=== PATIENT | female | born 1995 | race Two or more races ===

== ENCOUNTER 2021-03-12 19:56 | Emergency (ER) | payer MEDICAID, OTHER ==
[~2021-03-12] VITALS: Ht 167.6 cm; Wt 88.5 kg
[2021-03-12 20:25] LABS: Urine Bacteria NONE SEEN /hpf (None Seen); Urine Blood Negative /uL (Negative); Urine Specific Gravity 1.017 (1.001-1.035); Urine WBC 9 /hpf (0 - 5)
[2021-03-12 21:04] LABS: Eosinophils # (auto) 0.1 10 ^3/uL (0-0.8); Mean Corpuscular Volume 81.4 fL (80.0-100.0); Nucleated Red Blood Cells % 0.1 %
[2021-03-12 21:08] LABS: Basophils # (auto) 0 10 ^3/uL (0-0.2); Basophils % (auto) 0.4 % (0.0-2.0); Eosinophils % (auto) 0.9 % (0.0-7.0); Hematocrit 37.8 % (36.0-46.0); Hemoglobin 12.4 g/dL (12.2-16.2); Lymphocytes # (auto) 2.4 10 ^3/uL (0.4-5.4); Lymphocytes % (auto) 18.1 % (10.0-50.0); Mean Corpuscular Hemoglobin 26.7 pg (28.0-32.0); Mean Corpuscular Hgb Conc. 32.8 g/dL (32.0-36.0); Monocytes % (auto) 7.8 % (0.0-12.0); Neutrophils # (auto) 9.6 10 ^3/uL (1.6-8.6); Neutrophils % (auto) 72.8 % (37.0-80.0); Platelet Count (auto) 243 10^3/uL (140-450); Red Blood Cells 4.65 10^6/uL (4.0-5.20); Red Cell Distribution Width 14.5 % (11.8-14.3); White Blood Cell 13.2 10^3/uL (4.4-10.8)
[2021-03-12 21:21] LABS: Albumin 3.1 g/dL (3.4-5.0); Calcium 8.8 mg/dL (8.5-10.1); Potassium 3.9 mmol/L (3.5-5.1)
[2021-03-12 21:23] LABS: BUN/Creatinine Ratio 14.9
[2021-03-12 21:26] LABS: Bilirubin, Total 0.2 mg/dL (0.2-1.0); Total Protein 7.1 g/dL (6.4-8.2)
[2021-03-12 21:45] VITALS: BP 120/74
[2021-03-12] MEDS ORDERED: cefTRIAXone SOD 1,000 MG VL IM ONE (22:00)
== END 2021-03-12 22:50 | disposition home or self-care (01) ==
LOC: ER 19:56
DX: O20.0 Threatened abortion (principal); O20.8 Other hemorrhage in early pregnancy; O23.12 Infections of bladder in pregnancy, second trimester; Z3A.15 15 weeks gestation of pregnancy
CPT/HCPCS: 36415; 76805; 80053; 81001; 84702; 85025; 96372; 99284; J0696

== ENCOUNTER 2022-08-05 11:44 | Emergency (ER) | payer MEDICAID ==
[~2022-08-05] VITALS: Ht 167.6 cm; Wt 63.6 kg
[2022-08-05 12:29] VITALS: BP 119/82
[2022-08-05] MEDS ORDERED: IBUP800T27 PO (14:13)
== END 2022-08-05 14:22 | disposition home or self-care (01) ==
LOC: EDBD 11:44 → ER 11:44
DX: S63.502A Unspecified sprain of left wrist, initial encounter (principal); V43.52XA Car driver injured in collision with other type car in traffic accident, initial encounter; Y93.89 Activity, other specified; Y92.488 Other paved roadways as the place of occurrence of the external cause; Y99.8 Other external cause status
CPT/HCPCS: 73110

== ENCOUNTER 2023-07-14 16:49 | Emergency (ER) | payer MEDICAID ==
[~2023-07-14] VITALS: Ht 167.6 cm; Wt 90.9 kg
[~2023-07-14 16:49] MED LIST: IBUP-1456 PO
[2023-07-14] MEDS ORDERED: KETOROLAC TROMETH 60MG/2ML VIAL IM ONE (18:30)
[2023-07-14 18:45] VITALS: BP 135/69; PULSE 90; RESP 16; TEMP 98.8; O2SAT 96
[2023-07-14] MEDS ORDERED: IBUP-1455 PO (19:28)
[2023-07-14] MEDS ORDERED: TRAM50TA2 PO (19:28)
== END 2023-07-14 19:48 | disposition home or self-care (01) ==
LOC: ER 16:49
DX: G89.29 Other chronic pain (principal); M54.50 Low back pain, unspecified; M54.16 Radiculopathy, lumbar region; Z79.1 Long term (current) use of non-steroidal anti-inflammatories (NSAID)
CPT/HCPCS: 96372; 99283; J1885

== ENCOUNTER 2024-04-10 14:11 | Emergency (ER) | payer MEDICAID ==
[~2024-04-10] VITALS: Ht 167.6 cm; Wt 85.0 kg
[~2024-04-10 14:11] MED LIST changes: +IBUP-1455 PO; +TRAM50TA2 PO
[2024-04-10 14:12] VITALS: BP 100/62; PULSE 83; RESP 20; O2SAT 98
== END 2024-04-10 15:15 | disposition short-term general hospital (02) ==
LOC: ER 14:11 → EDBD 14:11 → ER 15:15
DX: S61.412A Laceration without foreign body of left hand, initial encounter (principal); T14.8XXA Other injury of unspecified body region, initial encounter; Z79.899 Other long term (current) drug therapy; V89.2XXA Person injured in unspecified motor-vehicle accident, traffic, initial encounter; Y93.I9 Activity, other involving external motion; Y92.411 Interstate highway as the place of occurrence of the external cause; Y99.8 Other external cause status

== ENCOUNTER 2025-01-12 11:07 | Emergency (ER) | payer MEDICAID ==
[~2025-01-12] VITALS: Ht 167.6 cm; Wt 102.0 kg
[2025-01-12 12:34] VITALS: BP 116/74; PULSE 89; RESP 16; TEMP 98.6; O2SAT 98
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
--- NOTE | 2025-01-12 12:57 | DVH ---
EXAM: XY PELVIS AP CLINICAL INDICATION: fall TECHNIQUE: XY PELVIS AP Comparison: None FINDINGS/IMPRESSION: There is no evidence of acute fracture or dislocation. ORIF of the left acetabulum. The alignment is anatomical. There is no radiopaque foreign body.
[2025-01-12] MEDS ORDERED: NAP500T PO (13:28)
== END 2025-01-12 13:34 | disposition home or self-care (01) ==
LOC: ER 11:07
DX: S70.02XA Contusion of left hip, initial encounter (principal); S70.12XA Contusion of left thigh, initial encounter; Z79.899 Other long term (current) drug therapy; Z79.1 Long term (current) use of non-steroidal anti-inflammatories (NSAID); W19.XXXA Unspecified fall, initial encounter; Y93.89 Activity, other specified; Y92.009 Unspecified place in unspecified non-institutional (private) residence as the place of occurrence of the external cause; Y99.8 Other external cause status
CPT/HCPCS: 72170

== ENCOUNTER 2025-10-12 22:15 | Emergency (ER) | payer OTHER, MEDICAID ==
[~2025-10-12] VITALS: Ht 167.6 cm; Wt 97.3 kg
[~2025-10-12 22:15] MED LIST changes: +NAP500T PO
[2025-10-12 22:21] VITALS: BP 114/67; PULSE 85; RESP 16; TEMP 97.3; O2SAT 98
[2025-10-13] MEDS ORDERED: ONDANSETRON HCL 4 MG/2 ML VIAL IV ONE (01:15)
[2025-10-13] MEDS ORDERED: SODIUM CHLORIDE 0.9% 1,000 ML IVB ONE (01:15)
[2025-10-13] MEDS ORDERED: LOPERAMIDE HCL 2 MG CAP/TAB PO ONE (01:15)
== END 2025-10-13 02:57 | disposition left against medical advice (07) ==
LOC: ER 22:15
DX: R11.2 Nausea with vomiting, unspecified (principal); R19.7 Diarrhea, unspecified; Z53.21 Procedure and treatment not carried out due to patient leaving prior to being seen by health care provider

== ENCOUNTER 2025-10-13 15:12 | Emergency (ER) | payer OTHER, MEDICAID ==
[~2025-10-13] VITALS: Ht 170.2 cm; Wt 95.4 kg
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
[2025-10-13 15:28] VITALS: BP 128/76; PULSE 92; RESP 18; TEMP 98.2; O2SAT 99
== END 2025-10-13 15:25 | disposition left against medical advice (07) ==
LOC: ER 15:12 → EDBD 15:12 → ER 15:25
DX: K52.9 Noninfective gastroenteritis and colitis, unspecified (principal)
CPT/HCPCS: 82947